=== PATIENT | female | born 1945 | race Hispanic/Latino ===

== ENCOUNTER 2016-09-15 08:57 | Outpatient (CLI) | payer MEDICARE, OTHER ==
--- NOTE | 2016-09-15 10:05 | Mammography Report ---
Bilateral mammogram: Compared to 08/14/15. CAD study utilized. Findings: Predominance adipose tissue bilaterally. No mass or microcalcification. Benign axillary nodes. Impression: Benign findings. Annual followup recommended. BI-RADS CATEGORY: 2 = Benign ACR BI-RADS MAMMOGRAPHIC CODES: 0 = Needs additional imaging evaluation; 1 = Negative; 2 = Benign; 3 = Probably benign; 4 = Suspicious; 5 = Malignant; 6 = Known biopsy-proven malignancy COMMENT: 1. Dense breast tissue, i.e., adenosis, fibrocystic changes, etc., may obscure an underlying neoplasm. 2. Approximately 10% of cancers are not detected with mammography. 3. A negative mammography report should not delay biopsy if a clinically suspicious mass is present. COMMENT: Patient follow-up letters are generated in [employer].
== END 2016-09-15 08:58 | disposition home or self-care (01) ==
LOC: MAMMO 08:57
PROVIDERS: ATTEND Internal Medicine
DX: Z12.31 Encounter for screening mammogram for malignant neoplasm of breast (principal); S31.829A Unspecified open wound of left buttock, initial encounter; X58.XXXA Exposure to other specified factors, initial encounter; Y93.89 Activity, other specified; Y92.89 Other specified places as the place of occurrence of the external cause; Y99.8 Other external cause status; I10 Essential (primary) hypertension
CPT/HCPCS: 77067; G0202

== ENCOUNTER 2017-09-26 08:52 | Outpatient (CLI) | payer MEDICARE, OTHER ==
--- NOTE | 2017-09-28 08:53 | Mammography Report ---
BILATERAL DIGITAL SCREENING MAMMOGRAM with CAD: 09/26/17 08:52:00 CLINICAL: Routine screening. COMPARISON:09/15/16 FINDINGS: The breasts are heterogeneously dense, which may obscure small masses. A right asymmetry on the MLO view requires additional imaging.No architectural distortion or suspicious calcifications.The left breast is negative. IMPRESSION: Right asymmetry requiring further workup. BI-RADS CATEGORY: 0 -- Additional Imaging Evaluation Required RECOMMENDATION: Recall for right lateralmedial and spot magnification MLO views and right breast ultrasound if needed. ACR BI-RADS MAMMOGRAPHIC CODES: 0 = Needs additional imaging evaluation; 1 = Negative; 2 = Benign; 3 = Probably benign; 4 = Suspicious; 5 = Malignant; 6 = Known biopsy-proven malignancy COMMENT: 1. Dense breast tissue, i.e., adenosis, fibrocystic changes, etc., may obscure an underlying neoplasm. 2. Approximately 10% of cancers are not detected with mammography. 3. A negative mammography report should not delay biopsy if a clinically suspicious mass is present. COMMENT: Patient follow-up letters are generated via our [employer] application.
== END 2017-09-26 08:53 | disposition home or self-care (01) ==
LOC: MAMMO 08:52
PROVIDERS: ATTEND Internal Medicine
DX: Z12.31 Encounter for screening mammogram for malignant neoplasm of breast (principal)
CPT/HCPCS: 77067

== ENCOUNTER 2017-10-06 09:12 | Outpatient (CLI) | payer MEDICARE, OTHER ==
--- NOTE | 2017-10-06 09:59 | XRay Report ---
ROUTINE CHEST, TWO VIEWS: HISTORY: Cough. The trachea, heart, mediastinal contour, and lung dewey are unremarkable. Mild scoliosis with stabilization of the lower thoracic spine are noted and unchanged since 05/22/17. IMPRESSION: No acute cardiopulmonary process.
== END 2017-10-06 09:13 | disposition home or self-care (01) ==
LOC: XRAY 09:12
PROVIDERS: ATTEND Internal Medicine
DX: R05 Cough (principal); E11.9 Type 2 diabetes mellitus without complications; I10 Essential (primary) hypertension; Z90.710 Acquired absence of both cervix and uterus
CPT/HCPCS: 71046

== ENCOUNTER 2017-10-12 08:53 | Outpatient (CLI) | payer MEDICARE, OTHER ==
--- NOTE | 2017-10-12 13:50 | Mammography Report ---
Right mammogram and right breast ultrasound: Call back for right asymmetry only identified in lateral projection on recent screening exam. Whole breast lateral and spot compression lateral view of the lower breast demonstrates some linear configuration benign-appearing tissue at the area of asymmetry. There are no suspicious characteristics however this area of tissue does not appear present on several prior exams. Ultrasound of the inferior breast fails to identify any echogenic abnormality. Impression: Probably benign right breast asymmetry. Recommendation: Repeat right mammogram in 6 months to confirm stability. The patient has been notified of this recommendation. BI-RADS CATEGORY: 3 = Probably benign ACR BI-RADS MAMMOGRAPHIC CODES: 0 = Needs additional imaging evaluation; 1 = Negative; 2 = Benign; 3 = Probably benign; 4 = Suspicious; 5 = Malignant; 6 = Known biopsy-proven malignancy COMMENT: 1. Dense breast tissue, i.e., adenosis, fibrocystic changes, etc., may obscure an underlying neoplasm. 2. Approximately 10% of cancers are not detected with mammography. 3. A negative mammography report should not delay biopsy if a clinically suspicious mass is present.
== END 2017-10-12 08:54 | disposition home or self-care (01) ==
LOC: MAMMO 08:53
PROVIDERS: ATTEND Internal Medicine
DX: R92.0 Mammographic microcalcification found on diagnostic imaging of breast (principal); E11.9 Type 2 diabetes mellitus without complications; I10 Essential (primary) hypertension; Z90.710 Acquired absence of both cervix and uterus

== ENCOUNTER → 2017-11-15 | Outpatient (CLI) | payer MEDICARE, OTHER ==
[~2017-11-15] MED LIST: SODIUM CHLORIDE FLUSH SYRINGE 10 ML IV ONE; XYLOCAINE TOPICAL 4% TP ONE
== END | disposition home or self-care (01) ==
LOC: WOUND 09:47
PROVIDERS: ATTEND Surgery
DX: E11.622 Type 2 diabetes mellitus with other skin ulcer (principal); L89.223 Pressure ulcer of left hip, stage 3; L98.491 Non-pressure chronic ulcer of skin of other sites limited to breakdown of skin; M16.12 Unilateral primary osteoarthritis, left hip; E11.40 Type 2 diabetes mellitus with diabetic neuropathy, unspecified; I10 Essential (primary) hypertension
CPT/HCPCS: 11042; G0463

== ENCOUNTER 2017-11-22 08:09 | Outpatient (CLI) | payer MEDICARE, OTHER ==
[2017-11-22] MEDS ORDERED: XYLOCAINE TOPICAL 4% TP ONE ×2 (08:25→08:35)
== END 2017-11-22 08:10 | disposition home or self-care (01) ==
LOC: WOUND 08:09
PROVIDERS: ATTEND Surgery
DX: E11.622 Type 2 diabetes mellitus with other skin ulcer (principal); L89.223 Pressure ulcer of left hip, stage 3; L98.491 Non-pressure chronic ulcer of skin of other sites limited to breakdown of skin; E11.40 Type 2 diabetes mellitus with diabetic neuropathy, unspecified; M16.12 Unilateral primary osteoarthritis, left hip; I10 Essential (primary) hypertension

== ENCOUNTER 2017-11-24 11:21 | Day surgery (SDC) | payer MEDICARE, OTHER ==
[~2017-11-24 11:21] MED LIST changes: +IOPIDINE ONE; +MYDRIACYL ONE; +NEOFRIN ONE; -SODIUM CHLORIDE FLUSH SYRINGE 10 ML IV ONE; -XYLOCAINE TOPICAL 4% TP ONE
[2017-11-24] MEDS ORDERED: IOPIDINE OD ONE (12:08)
[2017-11-24] MEDS ORDERED: MYDRIACYL OD ONE (12:08)
[2017-11-24] MEDS ORDERED: NEOFRIN OD ONE (12:08)
[2017-11-24 12:12] VITALS: BP 132/60
== END 2017-11-24 11:22 | disposition home or self-care (01) ==
LOC: OR 11:21
PROVIDERS: ATTEND Specialist
DX: H26.491 Other secondary cataract, right eye (principal); E11.9 Type 2 diabetes mellitus without complications; I10 Essential (primary) hypertension; K21.9 Gastro-esophageal reflux disease without esophagitis; Z90.710 Acquired absence of both cervix and uterus; Z72.89 Other problems related to lifestyle; Z98.890 Other specified postprocedural states; Z79.4 Long term (current) use of insulin; Z79.899 Other long term (current) drug therapy; Z98.42 Cataract extraction status, left eye; Z98.41 Cataract extraction status, right eye
CPT/HCPCS: 82962

== ENCOUNTER 2017-11-29 08:43 | Outpatient (CLI) | payer MEDICARE, OTHER ==
[2017-11-29] MEDS ORDERED: XYLOCAINE TOPICAL 4% TP ONE ×2 (09:27→12:29)
== END 2017-11-29 08:44 | disposition home or self-care (01) ==
LOC: WOUND 08:43
PROVIDERS: ATTEND Surgery
DX: E11.622 Type 2 diabetes mellitus with other skin ulcer (principal); L89.223 Pressure ulcer of left hip, stage 3; L98.491 Non-pressure chronic ulcer of skin of other sites limited to breakdown of skin; E11.40 Type 2 diabetes mellitus with diabetic neuropathy, unspecified; M16.12 Unilateral primary osteoarthritis, left hip; I10 Essential (primary) hypertension

== ENCOUNTER 2017-12-06 08:43 | Outpatient (CLI) | payer MEDICARE, OTHER ==
[2017-12-06] MEDS ORDERED: XYLOCAINE TOPICAL 4% TP ONE (09:02)
[2017-12-08] MEDS ORDERED: XYLOCAINE TOPICAL 4% TP ONE (13:45)
== END 2017-12-06 08:44 | disposition home or self-care (01) ==
LOC: WOUND 08:43
PROVIDERS: ATTEND Surgery
DX: E11.622 Type 2 diabetes mellitus with other skin ulcer (principal); L89.223 Pressure ulcer of left hip, stage 3; L98.491 Non-pressure chronic ulcer of skin of other sites limited to breakdown of skin; E11.40 Type 2 diabetes mellitus with diabetic neuropathy, unspecified; M16.12 Unilateral primary osteoarthritis, left hip; I10 Essential (primary) hypertension

== ENCOUNTER 2017-12-13 08:43 | Outpatient (CLI) | payer MEDICARE, OTHER ==
[2017-12-13] MEDS ORDERED: XYLOCAINE TOPICAL 4% TP ONE ×2 (08:52→09:22)
== END 2017-12-13 08:44 | disposition home or self-care (01) ==
LOC: WOUND 08:43
PROVIDERS: ATTEND Surgery
DX: E11.622 Type 2 diabetes mellitus with other skin ulcer (principal); L89.223 Pressure ulcer of left hip, stage 3; L98.491 Non-pressure chronic ulcer of skin of other sites limited to breakdown of skin; E11.40 Type 2 diabetes mellitus with diabetic neuropathy, unspecified; M16.12 Unilateral primary osteoarthritis, left hip
CPT/HCPCS: 99213; G0463

== ENCOUNTER 2018-04-13 08:51 | Outpatient (CLI) | payer MEDICARE ==
--- NOTE | 2018-04-13 10:05 | Mammography Report ---
RIGHT DIGITAL DIAGNOSTIC MAMMOGRAM : 04/13/18 08:51:00 CLINICAL: Six month followup asymmetry COMPARISON:10/12/17 and 09/26/17 FINDINGS: Routine views plus an exaggerated CC view were performed. The previously described asymmetry is no longer identified.The breast is heterogeneously dense. No mass, architectural distortion or suspicious calcifications. IMPRESSION: Negative Mammogram. BI-RADS CATEGORY: 1 -- Negative RECOMMENDATION: Return to routine mammographic screening. ACR BI-RADS MAMMOGRAPHIC CODES: 0 = Needs additional imaging evaluation; 1 = Negative; 2 = Benign; 3 = Probably benign; 4 = Suspicious; 5 = Malignant; 6 = Known biopsy-proven malignancy COMMENT: 1. Dense breast tissue, i.e., adenosis, fibrocystic changes, etc., may obscure an underlying neoplasm. 2. Approximately 10% of cancers are not detected with mammography. 3. A negative mammography report should not delay biopsy if a clinically suspicious mass is present. COMMENT: Patient follow-up letters are generated via our [employer] application.
== END 2018-04-13 08:52 | disposition home or self-care (01) ==
LOC: MAMMO 08:51
PROVIDERS: ATTEND Internal Medicine
DX: R92.8 Other abnormal and inconclusive findings on diagnostic imaging of breast (principal); I10 Essential (primary) hypertension; E11.9 Type 2 diabetes mellitus without complications; Z88.8 Allergy status to other drugs, medicaments and biological substances

== ENCOUNTER 2020-01-23 09:45 | Outpatient (CLI) | payer MEDICARE ==
--- NOTE | 2020-01-23 13:07 | Mammography Report ---
BILATERAL DIGITAL SCREENING MAMMOGRAM WITH CAD HISTORY: Screening mammogram. TECHNIQUE: Routine digital mammographic imaging performed. This examination was interpreted with ana carrillo benefit of Computer-aided Detection analysis. COMPARISON: 04/13/2018, 09/26/2017, 09/15/2016, 08/14/2015. FINDINGS: Breast Density: heterogeneously dense breast parenchymal pattern which somewhat lessens the sensitivi ty of the evaluation. Digital CC and MLO views demonstrate no mammographic evidence of malignancy. IMPRESSION: No mammographic evidence of malignancy. If the clinical examination remains stable, recommend bilate ral mammogram in approximately one year. BIRADS 1: Negative. FURTHER INFORMATION: According to the [employer], yearly mammograms are recommend ed starting at age 40 and continuing as long as a woman is in good health. Clinical Breast Exams shou ld be part of a periodic health exam-about every 3 years for women in their 20s and 30s and every yea r for women 40 and over. Breast self exam is an option for women starting in their 20s. Any breast ch maria elena noted on a breast self exam should be reported promptly to the patient's healthcare provider. Br east MRI is recommended for women with an approximately 20-25% or greater lifetime risk of breast can cer, including women with a strong family history of breast or ovarian cancer and women who have been treated for Hodgkin's disease. A negative Mammography report should not discourage follow up or biopsy of a clinically significant f inding and/or abnormality. Dense breast tissue may obscure small neoplasms. The patient will be entered into a reminder system with a target due date for the next screening mamm ogram. Signer Name: Crow Salazar MD Signed: 01/23/2020 1:02 PM Workstation Name: [id number]
== END 2020-01-23 09:46 | disposition home or self-care (01) ==
LOC: MAMMO 09:45
PROVIDERS: ATTEND Internal Medicine
DX: Z12.31 Encounter for screening mammogram for malignant neoplasm of breast (principal)
CPT/HCPCS: 77067

== ENCOUNTER 2021-10-01 14:36 | Outpatient (CLI) | payer MEDICARE ==
[2021-10-01 16:04] LABS: Calcium 8.5 mg/dL (8.4-10.2)
== END 2021-10-01 14:37 | disposition home or self-care (01) ==
LOC: LAB 14:36
PROVIDERS: ATTEND Internal Medicine
DX: E87.5 Hyperkalemia (principal); D64.9 Anemia, unspecified
CPT/HCPCS: 36415; 80048; 82607; 82728; 82747; 83540; 85045